=== PATIENT | female | born 1950 | race Caucasian/White ===

== ENCOUNTER 2016-11-28 09:24 | Emergency (ER) | payer OTHER ==
[~2016-11-28] VITALS: Wt 80.0 kg
[2016-11-28] MEDS ORDERED: ONDANSETRON 4 MG INJ IV STA (09:59)
[2016-11-28] MEDS ORDERED: morphine 10 MG INJ IV ONE (10:00)
--- NOTE | 2016-11-28 10:49 | RADRPT ---
PROCEDURE: CT brain without contrast CLINICAL INDICATION: Headaches TECHNIQUE: CT of the brain without contrast was performed on a CT scanner. One or more of the foll owing dose reduction techniques were used: Automated exposure control, adjustment in mA and / or kV according to patient size, use of iterative reconstructive technique. Radiation doses were not avail able. COMPARISON: None available FINDINGS: No acute intracranial hemorrhage is identified. No extra-axial fluid collection is seen. There is no mass effect. No midline shift is identified. Ventricles and sulci are within normal limits for size and configuration. The density of the brain is unremarkable. Obrien-white differentiation is preserved. Atherosclerotic calcifications of the intracranial internal carotid arteries are noted. Osseous structures are unremarkable. Mastoid air cells and imaged paranasal sinuses grossly clear. IMPRESSION: No evidence of acute intracranial pathology. RPTAT: VV .Jelani Melendez MD, Date Time Electronically viewed and signed by .Jelani Melendez MD, on 11/28/2016 10:49 .O/
[2016-11-28] MEDS ORDERED: HYDR-906 PO (10:52)
[2016-11-28] MEDS ORDERED: IBUP400T22 PO (10:53)
[2016-11-28] MEDS ORDERED: KETOROLAC 30 MG INJ IV STA (10:56)
[2016-11-28] MEDS ORDERED: NAPROXEN 500 MG TAB PO ONE (11:30)
[2016-11-28] MEDS ORDERED: IBUPROFEN 600 MG TAB PO ONE (11:30)
--- NOTE | 2016-11-28 17:32 | ERD ---
ER Documentation Chief Complaint Date/Time DATE: 11/28/16 TIME: 17:30 Chief Complaint non traumatic right side headache and coughing HPI This is a 66-year-old female presents to the ER with a headache that is located on the right side of her head and face. Pain radiates down the right side of her neck. Patient denies any neck stiffness. Pain is described as pressure- like. She denies any numbness or tingling of her head. Patient tried taking Advil however did not work. Pain is constant. Patient denies any eye pain. She denies nausea vomiting or diarrhea. Patient denies any vision changes. Patient did have a stroke 6 years ago and has a past medical history of diabetes , hypertension, high cholesterol. ROS 12 point review of systems was done, all negative except per HPI. Medications Home Meds Active Scripts Ibuprofen* (Motrin*) 400 Mg Tab, 400 MG PO Q6, #30 TAB Prov:ISAI KELLY 11/28/16 Hydrocodone/Acetaminophen ([place] 5-325 Tablet) 1 Each Tablet, 1 TAB PO Q6H Y for PAIN, #20 TAB Prov:ISAI KELLY 11/28/16 PMhx/Soc Medical and Surgical Hx: pt denies Medical Hx, pt denies Surgical Hx Hx Alcohol Use: No Hx Substance Use: No Hx Tobacco Use: No Physical Exam Vitals Vital Signs Date Time Temp Pulse Resp B/P Pulse Ox O2 Delivery O2 Flow Rate FiO2 11/28/16 09:26 98.5 79 78 175/81 98 Physical Exam GENERAL: The patient is well developed and appropriate for usual state of health , in no apparent distress. HEENT: Atraumatic. Conjunctivae are pink. Pupils equal, round, and reactive to light. Extraocular muscles are grossly intact. Bilateral tympanic membranes are clear with no evidence of erythema, bulging or perforation. No sinus tenderness. NECK: C-spine is soft and supple. There is no cervical lymphadenopathy. CHEST: Clear to auscultation bilaterally. There are no rales, wheezes or rhonchi. HEART: Regular rate and rhythm. No murmurs, clicks, rubs or gallops. EXTREMITIES: Equal pulses bilaterally. There is no peripheral clubbing, cyanosis or edema. No focal swelling or erythema. Full range of motion. Grossly neurovascularly intact. NEURO: Alert and oriented. Cranial nerves II through XII are intact. Motor strength in all 4 extremities with 5/5 strength. Sensation grossly intact. Normal speech and gait. Negative Rhomberg. +2 DTRs. SKIN: There is no apparent rash or petechia. The skin is warm and dry. Results 24 hrs Current Medications Medications (Trade) Dose Ordered Sig/Wilma Route PRN Reason Start Time Stop Time Status Last Admin Dose Admin Morphine Sulfate (morphine) 6 mg ONCE ONCE IV 11/28/16 10:00 11/28/16 10:01 DC 11/28/16 10:06 Ondansetron HCl (Zofran Inj) 4 mg ONCE STAT IV 11/28/16 09:59 11/28/16 10:00 DC 11/28/16 10:05 Ketorolac Tromethamine (Toradol) 30 mg ONCE STAT IV 11/28/16 10:56 11/28/16 11:05 DC Naproxen (Naprosyn) 500 mg ONCE ONCE PO 11/28/16 11:30 11/28/16 11:30 DC Ibuprofen (Motrin) 600 mg ONCE ONCE PO 11/28/16 11:30 11/28/16 11:31 DC 11/28/16 11:44 [place] [id number] Radiology Main Line: [phone] DIAGNOSTIC IMAGING REPORT Patient: SHIRIN NIEVES : 1950 Age: 66 Sex: F MR #: [id number] DOS: 11/28/16 0000 Ordering MD: ISAI KELLY PA-C Location: [facility] Room/Bed: PROCEDURE: CT brain without contrast CLINICAL INDICATION: Headaches TECHNIQUE: CT of the brain without contrast was performed on a CT scanner. One or more of the following dose reduction techniques were used: Automated exposure control, adjustment in mA and / or kV according to patient size, use of iterative reconstructive technique. Radiation doses were not available. COMPARISON: None available FINDINGS: No acute intracranial hemorrhage is identified. No extra-axial fluid collection is seen. There is no mass effect. No midline shift is identified. Ventricles and sulci are within normal limits for size and configuration. The density of the brain is unremarkable. Obrien-white differentiation is preserved. Atherosclerotic calcifications of the intracranial internal carotid arteries are noted. Osseous structures are unremarkable. Mastoid air cells and imaged paranasal sinuses grossly clear. IMPRESSION: No evidence of acute intracranial pathology. RPTAT: VV .Jelani Melendez MD, MD Date Time Electronically viewed and signed by .Jelani Melendez MD, on 11/28/2016 10:49 .O/ CC: ISAI KELLY Procedures/MDM Differential Diagnosis includes but is not limited to; tension headache, migraine headache, cluster headache, sinus headache, nonspecific febrile headache, trigeminal neurologia, subdural hematoma, subarachnoid bleeding, meningitis, encephalitis. Patient is neurologically intact with no focal neurological deficits. Likely trigeminal neuralgia. Patient does have pain to her and to her scalp. Patient for temporal arteritis is low. Patient's pain was controlled here in the ER. I discussed this case with Dr. Suero. Patient will be sent home with tramadol. She needs to follow-up with her primary care doctor within 1-2 days or return to ER if symptoms worsen. Sharma discussed with the patient she understands and agrees with plan. Departure Diagnosis: Primary Impression: Headache Condition: Stable Patient Instructions: Self-Care for Headaches Additional Instructions: Call your primary care doctor TOMORROW for an appointment during the next 1-2 days.See the doctor sooner or return here if your condition worsens before your appointment time. ISAI KELLY Nov 28, 2016 17:32
== END 2016-11-28 11:47 | disposition home or self-care (01) ==
LOC: FTE 09:24
DX: R51 Headache (principal); E11.9 Type 2 diabetes mellitus without complications; I10 Essential (primary) hypertension
CPT/HCPCS: 70450; 96374; 96375; J2270; J2405; Z7502; Z7610